=== PATIENT | male | born 1970 | race Caucasian/White ===

== ENCOUNTER 2019-05-09 10:03 | Observation (INO) | payer OTHER, BC ==
[~2019-05-09] VITALS: Ht 170.2 cm; Wt 107.1 kg
[~2019-05-09 10:03] MED LIST: DEXL30CA2 ORAL; EZET10TA32 ORAL; EZET10TA32 PO; GLIP5TAB13 ORAL; LOSA50TA14 ORAL; LOSA50TA2 PO; METF100010 ORAL; METO-335 ORAL; METO-448 PO
[2019-05-09] MEDS ORDERED: ACETAMINOPHEN 325 MG TAB PO PRN ×2 (14:30→15:30)
[2019-05-09] MEDS ORDERED: ONDANSETRON 4 MG INJ IV PRN ×2 (14:30→15:30)
[2019-05-09] MEDS ORDERED: morphine 2 MG INJ IV PRN (15:30)
[2019-05-09] MEDS ORDERED: HYDROCODONE/APAP (5/325) TAB PO PRN (15:30)
[2019-05-09] MEDS ORDERED: NACL 0.9% 3 ML SYG IV SCH (15:30)
[2019-05-09] MEDS ORDERED: MAGNESIUM HYDROXIDE 30ML CUP PO PRN (15:30)
[2019-05-09 17:17] VITALS: Ht 170.2 cm; Wt 107.1 kg
[2019-05-09] MEDS: ACCU-CHEK XX SCH ×2 (17:25→20:55)
[2019-05-09] MEDS ORDERED: GLUCAGON 1 MG INJ IM PRN (17:30)
[2019-05-09] MEDS ORDERED: GLUCOSE GEL 15 GRAM TUBE PO PRN ×2 (17:30)
[2019-05-09] MEDS ORDERED: DEXTROSE 50% 50 ML SYRINGE IV PRN ×2 (17:30)
[2019-05-09] MEDS ORDERED: GLUCOSE GEL 15 GRAM TUBE BUCCAL PRN (17:30)
[2019-05-09 17:39] VITALS: BP 153/85; PULSE 91; RESP 18
[2019-05-09] MEDS: INSULIN ASPART [NOVOLOG] 3 ML PEN SC SCH ×2 (17:55→20:41)
[2019-05-09] MEDS: metFORMIN 500 MG TAB PO SCH (18:10)
[2019-05-09 19:55] VITALS: BP 137/80; PULSE 91; RESP 20
[2019-05-09] MEDS: FAMOTIDINE 20 MG INJ IV SCH (20:29)
[2019-05-09] MEDS: EZETIMIBE 10 MG TAB PO SCH (20:30)
[2019-05-09] MEDS: METOPROLOL 25 MG TAB PO SCH (20:30)
[2019-05-09] MEDS: HEPARIN 5,000 UNIT/1 ML VIAL SC SCH (20:39)
[2019-05-09 21:00] VITALS: BP 130/76; PULSE 72
[2019-05-09 21:05] VITALS: BP 156/74; PULSE 70
[2019-05-09 21:10] VITALS: BP 162/73; PULSE 75
[2019-05-10] VITALS: BP 129/76; PULSE 65; RESP 19
[2019-05-10] MEDS: ACCU-CHEK XX SCH ×5 (02:00→21:37)
[2019-05-10 04:00] VITALS: BP 114/75; PULSE 70; RESP 21
[2019-05-10 07:39] VITALS: BP 131/84; PULSE 72; RESP 20
[2019-05-10] MEDS: INSULIN ASPART [NOVOLOG] 3 ML PEN SC SCH ×4 (07:55→20:45)
[2019-05-10] MEDS: metFORMIN 500 MG TAB PO SCH ×2 (08:11→17:36)
[2019-05-10] MEDS: LOSARTAN 50 MG TAB PO SCH (08:12)
[2019-05-10] MEDS: METOPROLOL 25 MG TAB PO SCH ×2 (08:13→20:40)
[2019-05-10] MEDS: FAMOTIDINE 20 MG INJ IV SCH (08:13)
[2019-05-10] MEDS: HEPARIN 5,000 UNIT/1 ML VIAL SC SCH ×2 (08:18→20:44)
[2019-05-10] MEDS ORDERED: LOSARTAN 50 MG TAB PO SCH (09:00)
[2019-05-10] MEDS ORDERED: EZETIMIBE 10 MG TAB PO SCH (09:00)
[2019-05-10 11:17] VITALS: BP 125/83; PULSE 71; RESP 20
[2019-05-10 15:12] VITALS: BP 128/77; PULSE 80; RESP 20
[2019-05-10] MEDS ORDERED: IBUPROFEN 200 MG TAB PO PRN (18:00)
[2019-05-10 19:39] VITALS: BP 136/75; PULSE 76; RESP 19
[2019-05-10] MEDS: FAMOTIDINE 20 MG TAB PO SCH (20:40)
[2019-05-10] MEDS: EZETIMIBE 10 MG TAB PO SCH (20:40)
[2019-05-11] VITALS: BP 133/73; PULSE 79; RESP 18
[2019-05-11] MEDS: ACCU-CHEK XX SCH ×3 (02:00→11:53)
[2019-05-11 04:12] VITALS: BP 135/75; PULSE 81; RESP 19
[2019-05-11 07:33] VITALS: BP 112/80; PULSE 69; RESP 20
[2019-05-11] MEDS: INSULIN ASPART [NOVOLOG] 3 ML PEN SC SCH ×2 (07:55→11:50)
[2019-05-11] MEDS: LOSARTAN 50 MG TAB PO SCH (08:12)
[2019-05-11] MEDS: metFORMIN 500 MG TAB PO SCH (08:12)
[2019-05-11] MEDS: FAMOTIDINE 20 MG TAB PO SCH (08:13)
[2019-05-11] MEDS: METOPROLOL 25 MG TAB PO SCH (08:13)
[2019-05-11] MEDS: HEPARIN 5,000 UNIT/1 ML VIAL SC SCH (08:15)
[2019-05-11 11:13] VITALS: BP 129/68; PULSE 76; RESP 20
== END 2019-05-11 14:45 | disposition home or self-care (01) ==
LOC: E/R 10:03 → TEL 14:14
PROVIDERS: ADMIT Internal Medicine; ATTEND Internal Medicine
DX: R55 Syncope and collapse (principal); E11.9 Type 2 diabetes mellitus without complications; K21.9 Gastro-esophageal reflux disease without esophagitis; I10 Essential (primary) hypertension; E78.5 Hyperlipidemia, unspecified; E66.9 Obesity, unspecified; Z68.37 Body mass index [BMI] 37.0-37.9, adult; Z79.84 Long term (current) use of oral hypoglycemic drugs; Z87.891 Personal history of nicotine dependence
CPT/HCPCS: 36415; 70450; 71045; 80048; 80053; 80061; 82550; 82553; 82962; 83036; 83735; 84100; 84436; 84443; 84479; 84484; 85025; 93005; 93306; 93880; 99285; G0378; J1644; J1815; 96374; 96376